=== PATIENT | female | born 1990 ===

== ENCOUNTER 2019-05-19 22:32 | Outpatient (CLI) | payer OTHER ==
[2019-05-20 03:49] VITALS: BP 107/69
== END 2019-05-20 04:17 | disposition home or self-care (01) ==
LOC: TRG 22:32
PROVIDERS: ATTEND Obstetrics & Gynecology
DX: O47.1 False labor at or after 37 completed weeks of gestation (principal); Z3A.39 39 weeks gestation of pregnancy
CPT/HCPCS: 59025

== ENCOUNTER 2019-05-21 11:05 | Inpatient (IN) | payer OTHER ==
[2019-05-21] MEDS ORDERED: BRETHINE SUB-Q PRN (11:15)
[2019-05-21] MEDS ORDERED: XYLOCAINE 2% INFILTRATI ONE (11:15)
--- NOTE | 2019-05-21 11:22 | History and Physical Report ---
History of Present Illness Date of examination: 05/21/19 Date of admission: 05/21/19 11:05 Chief complaint: Labor History of present illness: 29 year old female presents in active labor at term. Patient received care at [facility] and records are available. LMP 08/19/18. EDC 05/26/19. significant for the following: anemia. labs are as follows: O+, antibody screen negative, pap smear negative, rubella immune, RPR nonreactive, HIV negative, hepatitis B surface antigen negative, GC negative, CT negative, MSAFP negative, 1 hour sugar test 92, GBS negative. 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 denies: smoking, alcohol abuse, prescription drug abuse, IV drug use - Obstetrical History Expected Date of Delivery: 05/26/19 Actual Gestation: 39 Week(s) 2 Day(s) : 5 Para: 4 Hx # Term Pregnancies: 4 Number of Pregnancies: 0 Spontaneous Abortions: 0 Induced : 0 Number of Living Children: 4 Medications and Allergies Allergies Allergy/AdvReac Type Severity Reaction Status Date / Time No Known Allergies Allergy Verified 05/21/19 11:19 Home Medications Medication Instructions Recorded Confirmed Last Taken Type Vit-Fe Fumar-FA [ 1 tab PO DAILY 05/19/19 05/19/19 05/19/19 History Vitamin] Review of Systems All systems: negative (contractions) - Physical Exam Abdomen: Positive: normal appearance, soft. Negative: distention, tenderness, guarding, rigidity Genitourinary (Female): Positive: normal external genitalia, normal perenium. Negative: perineal/vulvar lesions Vagina: Positive: normal moisture Uterus: Positive: enlarged. Negative: tender Anus/Rectum: Positive: normal perianal skin Extremities: Positive: normal. Negative: tenderness, edema - Obstetrical FHR: category 1 Uterine Contraction Monitor Mode: External Cervical Dilatation: 6.5 Cervical Effacement Percentage: 100 station: -1 Uterine Contraction Pattern: Regular Uterine Contraction Intensity: Moderate Results All other labs normal. Assessment and Plan A: at 39 weeks, 2 days gestation. Active labor. GBS negative. P: Admit. Continuous EFM. Anticipate vaginal .
[2019-05-21 11:50] LABS: Hematocrit 33.4 % (30.3-42.9); Hemoglobin 10.6 gm/dl (10.1-14.3); Mean Corpuscular HGB Conc 32 % (30-34); Mean Corpuscular Volume 72 fl (79-97); Platelet Count 274 K/mm3 (140-440); Red Blood Count 4.65 M/mm3 (3.65-5.03); Red Cell Distribution Width 17.6 % (13.2-15.2)
[2019-05-21] MEDS ORDERED: LACTATED RINGERS 1,000 ML IV SCH (12:00)
[2019-05-21] MEDS ORDERED: SUBLIMAZE IV ONE (12:31)
[2019-05-21] MEDS: PITOCin/NS 20 UNIT/1000ML DRIP 20 UNITS/1,000 ML BAG IV SCH ×2 (13:04→14:42)
[2019-05-21] MEDS ORDERED: CYTOTEC PR ONE (13:10)
[2019-05-21] MEDS ORDERED: CYTOTEC ONE ×2 (13:14→14:55)
[2019-05-21] MEDS ORDERED: LANSINOH TP PRN (13:38)
[2019-05-21] MEDS ORDERED: DULCOLAX PR PRN (13:38)
[2019-05-21] MEDS ORDERED: NORCO 5/325 PO PRN (13:38)
[2019-05-21] MEDS ORDERED: TUCKS PAD TP PRN (13:38)
[2019-05-21] MEDS ORDERED: MILK OF MAGNESIA PO PRN (13:38)
--- NOTE | 2019-05-21 13:46 | Procedure Note ---
OB Delivery Note - Delivery Date of Delivery: 05/21/19 Surgeon: MALKA FORD Estimated blood loss: other (400 cc) - Vaginal Delivery presentation: vertex Delivery position: OA Intrapartum events: precipitous labor- <3hr Delivery induction: none Delivery monitor: external FHT, external uterine Route of delivery: Delivery placenta: spontaneous Delivery cord: nuchal cord, 3 umbilical vessels Episiotomy: none Delivery laceration: 1st degree Delivery repair: vicryl Anesthesia: none Delivery comments: Spontaneous vaginal delivery at 13:01 of liveborn female weighing 3409 grams over intact perineum with apgars of 8/9. Meconium stained amniotic fluid; NICU called to delivery due to meconium. Baby placed briefly skin to skin with mom while 3 vessel cord was double clamped and cut. Spontaneous cry and respirations. Baby taken to radiant warmer and further suctioned. Cord blood obtained. Spontaneous delivery of intact placenta and membranes at 13:04. Pitocin to IV fluids after delivery of placenta. Uterine atonic; Cytotec 800 mcg given rectally. Fundal massage performed. EBL 400 cc. Vaginal sweep negative; 1st degree perineal laceration repaired with 3-0 vicryl. No other lacerations noted. Mother and baby stable.
[2019-05-21] MEDS: IBUPROFEN PO SCH ×3 (14:00→23:51)
[2019-05-21] MEDS ORDERED: SODIUM CHLORIDE FLUSH SYRINGE 10 ML IV NR (14:00)
[2019-05-21] MEDS: FEOSOL PO SCH ×2 (15:13→23:51)
[2019-05-21] MEDS ORDERED: PITOCin/NS 20 UNIT/1000ML DRIP 20 UNITS/1,000 ML BAG IV SCH (17:00)
--- NOTE | 2019-05-21 17:28 | Event Note ---
Date: 05/21/19 US shows possible accessory lobe of placenta retained. Called Dr. Connell re: this US finding. He orders to give patient another bag of Pitocin. Orders put in for Pitocin.
--- NOTE | 2019-05-21 21:04 | Ultrasound Report ---
CLINICAL DATA: Check for accessory placental lobe TECHNICAL DATA: Ultrasound, pelvic (nonobstetric), real-time with image documentation; transabdominal and transvagina l imaging with Doppler was performed. Doppler imaging demonstrates normal arterial and venous flow. FINDINGS: Within the uterus there is a broad area of heterogeneous echogenicity measuring 9.5 cm in length 3.2 cm in AP dimensions and 4.2 cm in width. This fails to demonstrate significant vascularity. There is no significant quantity of free fluid dependently within the pelvis. IMPRESSION: Abnormal appearance of the uterus with a ill-defined soft tissue area within the endometrial canal, d ifferential diagnosis would include retained products of conception. In most cases of retained breast conception there is increased vascularity but the fact that there is not increased vascularity in th is case does not completely exclude the diagnosis. Recommend clinical correlation. Repeat ultrasound may be of benefit for further evaluation WOMEN OF REPRODUCTIVE AGE: 1. Cysts 3 cm: Normal physiologic findings; at the discretion of the interpreting physician whether o r not to describe them in the imaging report; do not need follow-up. 2. Cysts >3 and 5 cm: Should be described in the imaging report with a statement that they are almost certainly benign; do not need follow-up. 3. Cysts >5 and 7 cm: Should be described in the imaging report with a statement that they are almost certainly benign; yearly follow-up with US recommended. 4. Cysts >7 cm: Since these may be difficult to assess completely with US, further imaging with magne tic resonance (MR) or surgical evaluation should be considered. POSTMENOPAUSAL WOMEN: 1. Cysts 1 cm: Are clinically inconsequential; at the discretion of the interpreting physician whethe r or not to describe them in the imaging report; do not need follow-up. 2. Cysts >1 and 7 cm: Should be described in the imaging report with statement that they are almost c ertainly benign; yearly follow-up, at least initially, with US recommended. Some practices may opt to increase the lower size threshold for follow-up from 1 cm to as high as 3 cm. One may opt to continu e follow-up annually or to decrease the frequency of follow-up once stability or decrease in size has been confirmed. Cysts in the larger end of this range should still generally be followed on a regula r basis. 3. Cysts >7 cm: Since these may be difficult to assess completely with US, further imaging with MR or surgical evaluation should be considered.. Signer Name: Jaime Hurt MD Signed: 05/21/2019 9:00 PM Workstation Name: [id number]
[2019-05-22] MEDS: IBUPROFEN PO SCH ×4 (01:00→20:30)
[2019-05-22] MEDS: FEOSOL PO SCH ×2 (09:15→22:30)
[2019-05-22 15:57] LABS: Hematocrit 22.6 % (30.3-42.9); Hemoglobin 7.3 gm/dl (10.1-14.3)
--- NOTE | 2019-05-22 16:54 | Progress Note ---
Assessment and Plan A: /postop day 1 S/P . Anemia secondary to and blood loss. P: Supplement with iron. Follow up pelvic ultrasound today as US yesterday showed possible retained products (has been ordered). Subjective - Subjective Date of service: 05/22/19 Principal diagnosis: day 1 S/P Interval history: day 1 S/P . Doing well. Follow up pelvic US has been ordered. Patient reports minimal lochia, and she denies clots. Few afterbirth cramps. Voiding without difficulty, ambulating well, passing gas, tolerating a regular diet without nausea or vomiting. Patient denies headache, chest pain, cough, shortness of breath, dizziness, leg pain, or heavy bleeding. Patient reports: appetite normal, pain well controlled, flatus, ambulating normally, no voiding normally, no dizzy ambulation, no nauseated [place]: doing well Objective - Vital Signs Latest vital signs: Vital Signs Temp Pulse Resp BP BP Pulse Ox 05/22/19 16:34 20 05/22/19 12:36 98.0 F 18 102/57 05/22/19 09:20 98.1 F 90 18 100/55 96 05/22/19 09:16 20 05/21/19 23:30 98.6 F 74 18 112/67 05/21/19 18:47 20 05/21/19 17:30 99.4 F 80 20 104/44 Intake and Output 05/22/19 05/22/19 05/22/19 07:59 15:59 23:59 Intake Total 200 Balance 200 Intake: Oral 200 Other: Total, Intake Amount 200 - Exam Cardiovascular: Present: Regular rate, Normal S1, Normal S2 Lungs: Present: Clear to auscultation Abdomen: Present: normal appearance, soft, normal bowel sounds. Absent: distention, tenderness, guarding, rigidity Uterus: Present: normal, firm, fundal height below umbilicus. Absent: bogginess, tenderness Extremities: Present: normal. Absent: tenderness, edema - Labs Labs: Abnormal lab results 05/22/19 Range/Units 15:44 Hgb 7.3 L D (10.1-14.3) gm/dl Hct 22.6 L D (30.3-42.9) %
--- NOTE | 2019-05-22 18:53 | Ultrasound Report ---
CLINICAL DATA: Repeat examination for possible retained products of conception TECHNICAL DATA: Ultrasound, pelvic (nonobstetric), real-time with image documentation; transabdominal and transvagina l imaging with Doppler was performed. Doppler imaging demonstrates normal arterial and venous flow. FINDINGS: Within the uterus there is a broad area of heterogeneous echogenicity not dissimilar from the exam 24 hours earlier. However there does appear to be increased vascularity. There is no significant quantity of free fluid dependently within the pelvis. IMPRESSION: Abnormal appearance of the uterus with a ill-defined soft tissue area within the endometrial canal, d ifferential diagnosis would include retained products of conception. Endometrial blood clot could giv e a similar appearance. Recommend clinical correlation WOMEN OF REPRODUCTIVE AGE: 1. Cysts 3 cm: Normal physiologic findings; at the discretion of the interpreting physician whether o r not to describe them in the imaging report; do not need follow-up. 2. Cysts >3 and 5 cm: Should be described in the imaging report with a statement that they are almost certainly benign; do not need follow-up. 3. Cysts >5 and 7 cm: Should be described in the imaging report with a statement that they are almost certainly benign; yearly follow-up with US recommended. 4. Cysts >7 cm: Since these may be difficult to assess completely with US, further imaging with magne tic resonance (MR) or surgical evaluation should be considered. POSTMENOPAUSAL WOMEN: 1. Cysts 1 cm: Are clinically inconsequential; at the discretion of the interpreting physician whethe r or not to describe them in the imaging report; do not need follow-up. 2. Cysts >1 and 7 cm: Should be described in the imaging report with statement that they are almost c ertainly benign; yearly follow-up, at least initially, with US recommended. Some practices may opt to increase the lower size threshold for follow-up from 1 cm to as high as 3 cm. One may opt to continu e follow-up annually or to decrease the frequency of follow-up once stability or decrease in size has been confirmed. Cysts in the larger end of this range should still generally be followed on a regula r basis. 3. Cysts >7 cm: Since these may be difficult to assess completely with US, further imaging with MR or surgical evaluation should be considered Signer Name: Jaime Hurt MD Signed: 05/22/2019 6:49 PM Workstation Name: [id number]
--- NOTE | 2019-05-22 19:44 | Event Note ---
Date: 05/22/19 Patient has a minimal amount of lochia. Not bleeding heavily and not passing clots. US follow up exam was similar to yesterday's US. Consulted with Dr. Connell re: US results. Dr. Connell orders to give patient Cytotec. Cytotec 200 mcg po every 8 hours ordered for patient.
[2019-05-22] MEDS: CYTOTEC PO SCH (22:30)
[2019-05-23] MEDS: IBUPROFEN PO SCH ×4 (06:58→23:56)
[2019-05-23] MEDS: CYTOTEC PO SCH ×2 (06:58→13:42)
[2019-05-23] MEDS: FEOSOL PO SCH ×2 (08:40→23:54)
--- NOTE | 2019-05-23 10:21 | Progress Note ---
Assessment and Plan - Patient Problems (1) Status post normal vaginal delivery Current Visit: Yes Status: Acute Plan to address problem: PPD 2 - stable Continue routine orders Consult MD about plan of care secondary to Retained POC (2) Retained products of conception after delivery without hemorrhage but with other complication Current Visit: Yes Status: Acute Plan to address problem: Confirmed on two ultrasounds s/p Cytotec Consult Dr. Varela about plan of care (3) Anemia due to blood loss, acute Current Visit: Yes Status: Acute Plan to address problem: Asymptomatic Continue iron therapy Subjective - Subjective Date of service: 05/23/19 Principal diagnosis: PPD #2; s/p Interval history: see H&P, OB Delivery Procedure Note, Event Notes, PP/VBA PROGRAMMER Progress Note and U/S Reports Patient reports: appetite normal, voiding normally, pain well controlled, ambulating normally, no dizzy ambulation : doing well Objective - Vital Signs Latest vital signs: Vital Signs Temp Pulse Resp BP BP Pulse Ox 05/23/19 08:34 98.7 F 76 18 103/63 05/23/19 06:58 18 05/23/19 00:31 97.9 F 89 16 103/63 98 05/22/19 17:18 97.5 F L 84 18 92/55 98 05/22/19 16:34 20 05/22/19 12:36 98.0 F 18 102/57 Intake and Output 05/22/19 05/23/19 05/23/19 23:59 07:59 15:59 Intake Total 480 Balance 480 Intake: Oral 480 Other: Total, Intake Amount 480 # Voids Void 2 - Exam Abdomen: Present: normal appearance, soft Vulva: both: laceration/episiotomy (well approximated) Uterus: Present: normal, firm, fundal height at umbilicus Extremities: Present: normal Comments: scant lochia - Labs Labs: Abnormal lab results 05/22/19 Range/Units 15:44 Hgb 7.3 L D (10.1-14.3) gm/dl Hct 22.6 L D (30.3-42.9) %
--- NOTE | 2019-05-24 09:39 | Progress Note ---
Assessment and Plan - Patient Problems (1) Status post normal vaginal delivery Current Visit: Yes Status: Acute Plan to address problem: Continue routine PP orders May d/c home today if CBC stable (2) Retained products of conception after delivery without hemorrhage but with other complication Current Visit: Yes Status: Acute Plan to address problem: Minimal bleeding noted Denies pelvic or abdominal pain (3) Anemia due to blood loss, acute Current Visit: Yes Status: Acute Plan to address problem: Asymptomatic, but pale in color Stat CBC Continue daily oral iron supplementation Subjective - Subjective Date of service: 05/24/19 Principal diagnosis: PPD #3; s/p Interval history: See admission H & P, OB delivery summary, U/S reports and PP progress reports Patient reports: appetite normal, voiding normally, pain well controlled (with medications), flatus, ambulating normally : doing well, bottle feeding (and ) Objective - Vital Signs Latest vital signs: Vital Signs Temp Pulse Resp BP BP Pulse Ox 05/24/19 01:36 97.7 F 67 18 96/54 99 05/23/19 16:36 98.9 F 82 18 107/45 Intake and Output 05/23/19 05/24/19 05/24/19 23:59 07:59 15:59 Intake Total 600 Balance 600 Intake: Oral 600 Other: Total, Intake Amount 120 - Exam Breasts: Present: normal Cardiovascular: Present: Regular rate Lungs: Present: Normal air movement Abdomen: Present: soft, normal bowel sounds Uterus: Present: firm, fundal height below umbilicus (U-1) Extremities: Present: normal Deep Tendon Reflex Grade: Normal +2 Incision: Present: other (first degree laceration healing as expected)
[2019-05-24 09:50] LABS: Hematocrit 22.8 % (30.3-42.9); Hemoglobin 7.3 gm/dl (10.1-14.3)
[2019-05-24] MEDS: FEOSOL PO SCH (10:00)
[2019-05-24] MEDS ORDERED: INFED IM ONE (11:20)
[2019-05-24] MEDS: IBUPROFEN PO SCH ×2 (13:09→17:58)
[2019-05-25] MEDS: IBUPROFEN PO SCH ×3 (02:31→08:48)
[2019-05-25 06:32] LABS: Hematocrit 23.4 % (30.3-42.9); Hemoglobin 7.3 gm/dl (10.1-14.3)
[2019-05-25] MEDS: FEOSOL PO SCH (08:46)
[2019-05-25 16:06] VITALS: BP 106/67
--- NOTE | 2019-05-25 17:30 | Progress Note ---
Assessment and Plan - Patient Problems (1) Status post normal vaginal delivery Current Visit: Yes Status: Acute (2) Retained products of conception after delivery without hemorrhage but with other complication Current Visit: Yes Status: Acute Plan to address problem: I got Cony from [facility] office to translate for me. Patient was told about the structure inside the uterus which may be blood clots or retained piece of placenta. I told her that since she is not bleeding and is asymptomatic, I will not do anything at this time but she will need a f/u sonogram in 2 weeks to marily ssess the endometrium. I am discharging her home with precautions to return to the hospital if any heavy bleeding. She expressed understanding of such plan. The phone number for [facility] [facility] was given to her to call for sonogram appointment. (3) Anemia Current Visit: Yes Status: Acute Qualifiers: Anemia type: iron deficiency Subjective - Subjective Date of service: 05/25/19 Principal diagnosis: PPD #3; s/p Interval history: Patient is S/P on 05/21/19. She lost about 700 cc of blood secondary to uterine atony. She had pitocin and cytotec. After the delivery, sonogram was done and showed a ill-defined soft tissue mass in the endometrium measuring 9 x 4 cm. Since then, the patient has only had mild lochia and minimal post cramp. Repeat sonogram the following day showed the same finding while the patient had no more bleeding. I just spoke with the patient and she denies any bleeding, pain, dizziness or palpitation. Her vitals are stable. Her H/H decreased from 10/33 to 7/23. She is on iron. Objective - Vital Signs Latest vital signs: Vital Signs Temp Pulse Resp BP BP Pulse Ox 05/25/19 15:31 98.7 F 66 18 106/67 99 05/25/19 08:21 98.2 F 71 16 100/58 99 05/25/19 01:20 97.9 F 84 18 86/56 97 05/24/19 23:45 97.9 F 83 18 86/56 97 Intake and Output 05/25/19 05/25/19 05/25/19 07:59 15:59 23:59 Intake Total 1080 120 Balance 1080 120 Intake: Oral 480 120 Intake, Free Water 600 Other: Total, Intake Amount 240 120 # Voids Void 1 - Exam Cardiovascular: Present: Normal S1, Normal S2 Lungs: Present: Clear to auscultation Vulva: both: normal - Labs Labs: Abnormal lab results 05/25/19 Range/Units 05:59 Hgb 7.3 L (10.1-14.3) gm/dl Hct 23.4 L (30.3-42.9) %
--- NOTE | 2019-05-25 17:33 | Discharge Summary ---
Providers - Providers Date of Admission: 05/21/19 11:05 Date of discharge: 05/25/19 Attending physician: MAHSA DEL TORO MD Primary care physician: MAHSA DEL TORO MD Hospitalization Reason for admission: active labor Episiotomy: none Laceration: 1st degree baby: female Hospital course: Patient is S/P on 05/21/19. She lost about 700 cc of blood secondary to uterine atony. She had pitocin and cytotec. After the delivery, sonogram was done and showed a ill-defined soft tissue mass in the endometrium measuring 9 x 4 cm. Since then, the patient has only had mild lochia and minimal post cramp. Repeat sonogram the following day showed the same finding while the patient had no more bleeding. I just spoke with the patient and she denies any bleeding, pain, dizziness or palpitation. Her vitals are stable. Her H/H decreased from 10/33 to 7/23. She is on iron. Condition at discharge: Stable Disposition: DC- TO HOME OR SELFCARE - Discharge Diagnoses (1) Status post normal vaginal delivery Status: Acute (2) Retained products of conception after delivery without hemorrhage but with other complication Status: Acute (3) Anemia Status: Acute Qualifiers: Anemia type: iron deficiency Plan - Provider Discharge Summary Activity: routine Diet: routine Instructions: routine Additional instructions: [] Smoking cessation referral if applicable(refer to patient education folder for contact #) [] Refer to [facility] Booklet Call your doctor immediately for: * Fever > 100.5 * Heavy vaginal bleeding ( >1 pad per hour) * Severe persistent headache * Shortness of breath * Reddened, hot, painful area to leg or breast * Drainage or odor from incision. * Keep incision clean and dry at all times and follow doctor's instructions regarding bathing/showering - Follow up plan Follow up: MAHSA DEL TORO MD [Primary Care Provider] - 7 Days Forms: [facility] Discharge Summary
== END 2019-05-25 17:15 | disposition home or self-care (01) | DRG 806 ==
LOC: LD 11:05 → OB 18:33
PROVIDERS: ADMIT Obstetrics & Gynecology; ATTEND Obstetrics & Gynecology
PROC: 10E0XZZ Delivery of Products of Conception, External Approach (ICD-10-PCS; principal; 2019-05-21)
PROC: 0HQ9XZZ Repair Perineum Skin, External Approach (ICD-10-PCS; 2019-05-21)
DX: O62.3 Precipitate labor (principal); D62 Acute posthemorrhagic anemia; Z37.0 Single live birth; O69.81X0 Labor and delivery complicated by cord around neck, without compression, not applicable or unspecified; O77.0 Labor and delivery complicated by meconium in amniotic fluid; O73.1 Retained portions of placenta and membranes, without hemorrhage; O70.0 First degree perineal laceration during delivery; O90.81 Anemia of the puerperium; D50.9 Iron deficiency anemia, unspecified; O62.2 Other uterine inertia; Z3A.39 39 weeks gestation of pregnancy
CPT/HCPCS: 36415; 76857; 85014; 85018; 85027; 86592; 86850; 86900; 86901; 88307; 96360; 96367; G0378; J1750; J2590; J7120